=== PATIENT | male | born 1965 | race Two or more races ===

== ENCOUNTER 2016-11-16 18:15 | Emergency (ER) | payer SELFPAY ==
[~2016-11-16] VITALS: Ht 180.3 cm; Wt 77.1 kg
[2016-11-16 18:02] VITALS: BP 133/77
[2016-11-16 20:02] VITALS: BP 138/72
[2016-11-16 21:20] VITALS: BP 138/72
--- NOTE | 2016-11-16 21:28 | Emergency Room Report ---
History of Present Illness General Chief Complaint: Alcohol Intoxication Source: Patient, EMS Present Illness HPI The patient is a 51-year-old male brought in by ambulance for presumed alcohol intoxication. The patient does not provide information at this time. He is lethargic and has slurred speech. Allergies: Coded Allergies: No Known Allergies (Unverified , 11/16/16) Patient History Past Medical History: see triage record Pertinent Family History: none Social History: Reports: alcohol use Reviewed Nursing Documentation: PMH: Agreed, PSxH: Agreed Nursing Documentation-PMH Past Medical History Deferred: Pt Cognitively Impaired Review of Systems All Other Systems: negative except mentioned in HPI Physical Exam Vital Signs Date Time Temp Pulse Resp B/P (MAP) Pulse Ox O2 Delivery O2 Flow Rate FiO2 11/16/16 18:02 98.7 91 20 133/77 95 Room Air Sp02 EP Interpretation: reviewed, normal General Appearance: no apparent distress, alert, GCS 15, non-toxic Head: normocephalic, atraumatic Eyes: bilateral eye normal inspection, bilateral eye PERRL ENT: hearing grossly normal, normal pharynx, no angioedema, normal voice Neck: full range of motion, supple/symm/no masses Respiratory: chest non-tender, lungs clear, normal breath sounds Cardiovascular #1: regular rate, rhythm, no edema Gastrointestinal: normal bowel sounds, non tender, soft, non-distended, no guarding, no rebound Musculoskeletal: back normal, normal range of motion, non-tender Neurologic: alert, responsive, sensory intact Psychiatric: no suicidal/homicidal ideation, no delusions Skin: normal color, no rash, warm/dry, well hydrated Medical Decision Making PA Attestation Dr. Carter is my supervising physician. Patient management was discussed with my supervising physician Diagnostic Impression: Primary Impression: Acute alcoholic intoxication Qualified Codes: F10.929 - Alcohol use, unspecified with intoxication, unspecified ER Course The patient is a 51-year-old male brought in by ambulance for presumed alcohol intoxication DDx considered but not limited to: acute alcohol intoxication, hepatic encephalopathy, drug overdose, hypoglycemia, psychosis Physical exam: Vitals are within normal limits. No apparent distress. Patient is lethargic. Head is normocephalic atraumatic. Pupils are equally round and reactive to light The patient is arousable by touch or name. Lungs are clear to auscultation bilaterally. No abnormal tenderness. Abdomen is soft. Otherwise exam is unremarkable The patient is given time to rest in the emergency department. Upon reevaluation, patient more alert and admits to consuming alcohol. He denies drug use. The patient is able to ambulate well and is asking to leave at this time. The patient is alert and oriented. The patient be discharged home and given ER precautions. Patient was given advice on alcohol addiction Last Vital Signs Date Time Temp Pulse Resp B/P (MAP) Pulse Ox O2 Delivery O2 Flow Rate FiO2 11/16/16 18:02 91 20 133/77 95 Room Air 11/16/16 18:02 98.7 Status: improved Disposition: HOME, SELF-CARE Condition: Improved Referrals: NOT CHOSEN IPA/MD,REFERRING (PCP) Patient Instructions: Alcohol Intoxication Additional Instructions: My findings were discussed with the patient. Patient was counseled to seek help for alcohol abuse. Patient is stable for discharge, is alert and oriented, and can ambulate without difficulty. Patient is asked to return to ED if he experiences chest pain, abdominal pain, dizziness, falls down, or for any reason. MIKAEL CARRIZALES Nov 16, 2016 21:28
== END 2016-11-16 21:20 | disposition home or self-care (01) ==
LOC: EDBD 18:15 → EMR 20:24
DX: F10.129 Alcohol abuse with intoxication, unspecified (principal)
CPT/HCPCS: 99284

== ENCOUNTER 2017-01-08 13:58 | Emergency (ER) | payer SELFPAY ==
[~2017-01-08] VITALS: Ht 167.6 cm; Wt 77.1 kg
--- NOTE | 2017-01-08 13:56 | Emergency Room Report ---
History of Present Illness General Chief Complaint: Alcohol Intoxication Source: EMS Present Illness HPI 51 YO Male Pt. presents to the ED brought by ambulance for being intoxicated with alcohol, pt. is NAD, pt. is alert, no obvious signs of trauma, able to ambulate onto gurney. Sit up on his own, and answer questions with slurred speech and obvious alcohol on the breath. pt. reports only drinking 2 beers today. he denies other drug use. denies Pmhx. denies allergies, or being prescribed medications. HPI and ROS limited due to pt. being clinically intoxicated. Allergies: Coded Allergies: No Known Allergies (Unverified , 11/16/16) UNABLE TO ASSESS (Unverified , 01/08/17) Patient History Past Medical History: see triage record Past Surgical History: none Pertinent Family History: none Social History: Reports: alcohol use - beers Reviewed Nursing Documentation: PMH: Agreed, PSxH: Agreed Nursing Documentation-PMH Past Medical History Deferred: Pt Cognitively Impaired Review of Systems All Other Systems: limited - due to AMS/ intoxication Physical Exam Vital Signs Date Time Temp Pulse Resp B/P (MAP) Pulse Ox O2 Delivery O2 Flow Rate FiO2 01/08/17 13:47 98.4 96 20 116/66 99 Room Air Sp02 EP Interpretation: reviewed, normal General Appearance: no apparent distress, alert, GCS 15, non-toxic Head: normocephalic, atraumatic Eyes: bilateral eye normal inspection, bilateral eye PERRL ENT: hearing grossly normal, normal voice, uvula midline, moist mucus membranes Neck: full range of motion, no bony tend, supple/symm/no masses Respiratory: lungs clear, normal breath sounds, no respiratory distress, no accessory muscle use, no wheezing, speaking full sentences Cardiovascular #1: regular rate, rhythm, no edema, normal capillary refill Gastrointestinal: non tender, soft, non-distended, no guarding Rectal: deferred Musculoskeletal: back normal, gait/station normal, normal range of motion, non- tender, no calf tenderness Neurologic: alert, responsive, motor strength/tone normal, sensory intact Skin: normal color, no rash, warm/dry, well hydrated Medical Decision Making PA Attestation Dr. jimenez is my supervising Physician whom patient management has been discussed with. Diagnostic Impression: Primary Impression: Acute alcoholic intoxication Qualified Codes: F10.929 - Alcohol use, unspecified with intoxication, unspecified ER Course Pt. presents to the ED brought by ambulance for being intoxicated with alcohol, pt. is NAD, pt. is alert, no obvious signs of trauma, able to ambulate onto gurney. Sit up on his own, and answer questions with slurred speech and obvious alcohol on the breath. pt. reports only drinking 2 beers today. he denies other drug use. denies Pmhx. denies allergies, or being prescribed medications. Ddx considered but are not limited to ETOH, Trauma, Syncope, dementia, OD Vital signs: are WNL, pt. is afebrile H&PE are most consistent with ETOH abuse. ORDERS: -Serum ETOH: 421 ED INTERVENTIONS: -NS Bolus 1 liter -500 cc SN bolus Observance while he detoxifies. Pt. was allowed to sleep/rest. until he is clinically sober. Disposition: Pt is signed out to Dr. Gunn for continued observance while he detoxifies. Labs Test 01/08/17 19:00 Serum Alcohol 421 mg/dL Last Vital Signs Date Time Temp Pulse Resp B/P (MAP) Pulse Ox O2 Delivery O2 Flow Rate FiO2 01/08/17 13:47 98.4 96 20 116/66 99 Room Air Disposition: HOME, SELF-CARE Condition: Stable Signed Out To: Dr. Gunn Patient Instructions: Alcohol Intoxication, [id number] Additional Instructions: Take previously prescribed medications as directed. STOP DRINKING ALCOHOL EXCESSIVELY. Follow up with a Primary Care Provider in 3-5 days, even if your symptoms have resolved. --Please review list of primary care clinics, if you do not already have a primary care provider Return sooner to ED if new symptoms occur, or current symptoms become worse. - Please note that this Emergency Department Report was dictated using [employer] sales agent technology software, occasionally this can lead to erroneous entry secondary to interpretation by the dictation equipment. Tete Page Jan 08, 2017 13:56
[2017-01-08 14:10] VITALS: BP 114/68
[2017-01-08 20:07] VITALS: BP 122/70
[2017-01-08] MEDS ORDERED: Sodium Chloride 500ML 500 ML IVPB ONE (21:00)
[2017-01-08 22:25] VITALS: BP 118/68
== END 2017-01-08 22:26 | disposition home or self-care (01) ==
LOC: EDBD 13:58 → EMR 14:08
DX: F10.129 Alcohol abuse with intoxication, unspecified (principal); Y90.8 Blood alcohol level of 240 mg/100 ml or more
CPT/HCPCS: 36415; 96374; 99284; G0480; 80329